=== PATIENT | female | born 1980 | race Caucasian/White ===

== ENCOUNTER 2021-01-03 20:25 | Emergency (ER) | payer OTHER ==
[~2021-01-03] VITALS: Ht 154.9 cm; Wt 76.7 kg
[2021-01-03 20:30] VITALS: BP 131/90
--- NOTE | 2021-01-03 20:32 | NUR ---
TO LOBBY A/W BED AMBULATORY
--- NOTE | 2021-01-03 22:12 | NUR ---
SEEN AND EXAMINED BY JOSR WITH ORDERS AND CARRIED OUT .
[2021-01-03] MEDS ORDERED: BACITRACIN OINT 500 UNITS/GM PKT TP ONE ×2 (22:17→22:20)
--- NOTE | 2021-01-03 22:20 | NUR ---
MEDICATED PER [facility] ORDER, TOLERATED WELL.
--- NOTE | 2021-01-03 22:28 | NUR ---
WOUND WAS CLEANED AND APPLIED BACITRACIN OINTMENT AND DRESSED,WOUND INTACT
[2021-01-03 22:50] VITALS: BP 128/78
--- NOTE | 2021-01-03 22:50 | NUR ---
Patient discharged with v/s stable. Written and verbal after care instructions given and explained. Patient alert, oriented and verbalized understanding of instructions. Ambulatory with steady gait. All questions addressed prior to discharge. ID band removed. Patient advised to follow up with PMD. Rx of BACITRACIN, AMOXICILLIN given. Patient educated on indication of medication including possible reaction and side effects. Opportunity to ask questions provided and answered.
== END 2021-01-03 22:50 | disposition home or self-care (01) ==
LOC: MED 20:25
DX: S61.210A Laceration without foreign body of right index finger without damage to nail, initial encounter (principal); W54.0XXA Bitten by dog, initial encounter; Y93.89 Activity, other specified; Y92.89 Other specified places as the place of occurrence of the external cause; Y99.8 Other external cause status
CPT/HCPCS: 90471; 90715; 99283